=== PATIENT | female | born 1930 | race Caucasian/White ===

== ENCOUNTER → 2017-04-08 | Outpatient (CLI) | payer MEDICARE, OTHER | END | disposition disaster alternative care site (69) | LOC: GAMB 17:41 | DX: S99.911A Unspecified injury of right ankle, initial encounter (principal); M25.471 Effusion, right ankle; R20.0 Anesthesia of skin; I10 Essential (primary) hypertension; E03.9 Hypothyroidism, unspecified; Z79.82 Long term (current) use of aspirin; Z79.899 Other long term (current) drug therapy; W19.XXXA Unspecified fall, initial encounter | CPT/HCPCS: A0425; A0429 ==